=== PATIENT | female | born 1985 | race Hispanic/Latino ===

== ENCOUNTER 2024-10-01 14:30 | Emergency (ER) | payer BC, OTHER ==
[~2024-10-01] VITALS: Ht 152.4 cm; Wt 83.9 kg
[~2024-10-01 14:30] MED LIST: OMEPRAZOLE40 MG PO
[2024-10-01 14:34] VITALS: PULSE 81; RESP 20; TEMP 98.9
[2024-10-01] MEDS ORDERED: AMOXICILLIN500 MG PO (14:49)
[2024-10-01 15:05] VITALS: BP 128/76; PULSE 75; RESP 20; TEMP 98.9; O2SAT 99
== END 2024-10-01 15:00 | disposition home or self-care (01) ==
LOC: FSED 14:33
DX: H66.91 Otitis media, unspecified, right ear (principal); Z11.52 Encounter for screening for COVID-19
CPT/HCPCS: 0223U; 83518; 87400; 99284